=== PATIENT | male | born 1945 | race Caucasian/White ===

== ENCOUNTER 2016-12-20 08:25 | Inpatient (IN) | payer OTHER ==
[~2016-12-20] VITALS: Ht 180.3 cm; Wt 82.0 kg
[~2016-12-20 08:25] MED LIST: OMEP-110 PO
[2016-12-20] MEDS ORDERED: FENTANYL PF 100 MCG/2ML ONE ×3 (08:58→12:09)
[2016-12-20] MEDS ORDERED: MIDAZOLAM 1 MG/ML, 2ML ONE (08:58)
[2016-12-20] MEDS ORDERED: CEFAZOLIN 1,000 MG ONE (08:59)
[2016-12-20] MEDS ORDERED: ONDANSETRON 2MG/ML, 2ML ONE (08:59)
[2016-12-20] MEDS ORDERED: DEXAMETHASONE 4 MG/ML, 1ML ONE (08:59)
[2016-12-20] MEDS ORDERED: PROPOFOL 10 MG/ML, 20ML ONE (08:59)
[2016-12-20] MEDS ORDERED: SUCCINYLCHOLINE 20 MG/ML, 10ML ONE (09:00)
[2016-12-20] MEDS ORDERED: LIDOCAINE-MPF 2% ,5ML ONE (09:00)
[2016-12-20] MEDS ORDERED: PROPOFOL 50 ML ONE (09:00)
[2016-12-20] MEDS ORDERED: LACTATED RINGERS 1,000 ML IV SCH (09:06)
[2016-12-20] MEDS ORDERED: LIDOCAINE 1%, 2ML ONE (09:10)
[2016-12-20 09:12] VITALS: BP 156/76
[2016-12-20] MEDS ORDERED: NEOSPORIN OINT, 15GM ONE (10:20)
[2016-12-20] MEDS ORDERED: EPINEPHRINE TOPICAL SOLN 1 MG/ML, 30ML ONE (10:20)
[2016-12-20] MEDS ORDERED: LIDOCAINE/PF 1%, 30ML ONE (10:25)
[2016-12-20] MEDS ORDERED: EPINEPHRINE 1 MG/ML, 1ML ONE (10:26)
[2016-12-20] MEDS ORDERED: ROCURONIUM 10 MG/ML ONE ×2 (10:44→10:59)
[2016-12-20] MEDS ORDERED: GLYCOPYRROLATE 0.2MG/1ML, 5ML ONE (10:59)
[2016-12-20] MEDS ORDERED: NEOSTIGMINE 1 MG/ML, 10ML ONE (10:59)
[2016-12-20] MEDS ORDERED: OXYcodone 5 MG/5 ML ORAL.SOL UDC PO PRN (11:30)
[2016-12-20] MEDS ORDERED: MEPERIDINE/PF 25MG/0.5ML IVPush PRN (11:30)
[2016-12-20] MEDS ORDERED: HYDROmorphone 1 MG/ML, 1ML IV PRN (11:30)
[2016-12-20] MEDS ORDERED: DIAZEPAM 5 MG/ML, 2ML IVPush PRN (11:30)
[2016-12-20] MEDS ORDERED: ALBUTEROL/IPRATROPIUM 2.5MG/0.5MG, 3 ML NPPB PRN ×2 (11:30→22:30)
[2016-12-20] MEDS ORDERED: PROMETHAZINE 25 MG/ML, 1ML IV PRN (11:30)
[2016-12-20] MEDS ORDERED: ACETAMINOPHEN 325 MG TABLET PO PRN ×2 (11:30→17:30)
[2016-12-20] MEDS ORDERED: hydrALAzine 20 MG/ML, 1ML IV PRN (11:30)
[2016-12-20] MEDS ORDERED: MIDAZOLAM 1 MG/ML, 2ML IV PRN (11:30)
[2016-12-20] MEDS ORDERED: LABETALOL 5MG/ML, 20ML IV PRN (11:30)
[2016-12-20] MEDS ORDERED: ONDANSETRON 2MG/ML, 2ML IVPush PRN ×2 (11:30→17:30)
[2016-12-20] MEDS ORDERED: METOCLOPRAMIDE 5 MG/ML, 2ML IV PRN (11:30)
[2016-12-20] MEDS ORDERED: OXYcodone 5 MG/5 ML ORAL.SOL UDC ONE (12:09)
[2016-12-20] MEDS: FENTANYL PF 100 MCG/2ML IV PRN ×2 (12:10→12:19)
[2016-12-20] MEDS: NICOTINE 21 MG/24 HR PATCH.TD24 TD SCH (17:30)
[2016-12-20] MEDS ORDERED: morphine SULFATE 10 MG/ML, 1ML IVPush PRN (17:30)
[2016-12-20] MEDS ORDERED: POLYETHYLENE GLYCOL 17 GM PACKET PO PRN (17:30)
[2016-12-20] MEDS ORDERED: ONDANSETRON ODT 4 MG PO PRN (17:30)
[2016-12-20] MEDS ORDERED: DOCUSATE 100 MG CAPSULE PO PRN (17:30)
[2016-12-20] MEDS ORDERED: LABETALOL 5MG/ML, 20ML IVPush PRN (17:30)
[2016-12-20] MEDS ORDERED: BISACODYL 10 MG SUPP PR PRN (17:30)
[2016-12-20] MEDS ORDERED: ENOXAPARIN 40 MG/0.4 ML SQ SCH (17:30)
[2016-12-20] MEDS ORDERED: FUROSEMIDE 20 MG/2 ML IV ONE (18:00)
[2016-12-20 18:58] LABS: HEMATOCRIT 24.9 % (39.2-51.8); HEMOGLOBIN 8.2 g/dL (13.7-18.0); WHITE BLOOD COUNT 6.6 x10^3/uL (3.4-10)
[2016-12-20 19:13] LABS: ASPARTATE AMINO TRANSFERASE 11 U/L (15-37); BLOOD UREA NITROGEN 11 mg/dL (7-18)
[2016-12-20 19:18] VITALS: BP 166/82
[2016-12-20 19:21] LABS: IS PT STATUS REG ER OR PRE ER? NO
[2016-12-20 23:42] VITALS: BP 134/81
[2016-12-21] VITALS (8 sets, daily range): BP systolic 131–146; BP diastolic 69–84
[2016-12-21 06:00] LABS: WHITE BLOOD COUNT 9.7 x10^3/uL (3.4-10)
[2016-12-21 06:18] LABS: HEMATOCRIT 20.8 % (39.2-51.8)
[2016-12-21 06:26] LABS: BLOOD UREA NITROGEN 14 mg/dL (7-18)
[2016-12-21 07:03] LABS: ANISOCYTOSIS 1+; POIKILOCYTOSIS 1+
[2016-12-21 07:50] LABS: HEMOGLOBIN 7.1 g/dL (13.7-18.0)
[2016-12-21 07:53] LABS: HEMATOCRIT 21.1 % (39.2-51.8)
[2016-12-21] MEDS ORDERED: MAGNESIUM SULFATE PMX 2GM/50ML 50 ML IV ONE (09:30)
[2016-12-21] MEDS ORDERED: FUROSEMIDE 20 MG/2 ML IV ONE (11:30)
[2016-12-21 15:37] LABS: HEMATOCRIT 25.8 % (39.2-51.8); HEMOGLOBIN 8.7 g/dL (13.7-18.0)
[2016-12-21] MEDS: LISINOPRIL 5 MG TABLET PO SCH (17:26)
[2016-12-21] MEDS: NICOTINE 21 MG/24 HR PATCH.TD24 TD SCH (17:30)
[2016-12-21] MEDS ORDERED: ENOXAPARIN 40 MG/0.4 ML SQ SCH (17:30)
[2016-12-22 01:30] VITALS: BP 122/79
[2016-12-22 05:17] LABS: HEMATOCRIT 25.1 % (39.2-51.8); HEMOGLOBIN 8.6 g/dL (13.7-18.0); WHITE BLOOD COUNT 9.9 x10^3/uL (3.4-10)
[2016-12-22 05:28] LABS: BLOOD UREA NITROGEN 18 mg/dL (7-18)
[2016-12-22 08:38] VITALS: BP 119/70
[2016-12-22] MEDS: LISINOPRIL 5 MG TABLET PO SCH (09:14)
[2016-12-22] MEDS ORDERED: LISI5TAB7 PO (14:28)
== END 2016-12-22 14:40 | disposition home or self-care (01) | DRG 146 ==
LOC: OUT 08:25 → ORIP 17:30 → 4NOR 17:58
PROVIDERS: ADMIT Internal Medicine; ATTEND Internal Medicine
PROC: 0CBT8ZX Excision of Right Vocal Cord, Via Natural or Artificial Opening Endoscopic, Diagnostic (ICD-10-PCS; principal; 2016-12-20 10:30)
PROC: 0T9B70Z Drainage of Bladder with Drainage Device, Via Natural or Artificial Opening (ICD-10-PCS; 2016-12-21)
PROC: 30233N1 Transfusion of Nonautologous Red Blood Cells into Peripheral Vein, Percutaneous Approach (ICD-10-PCS; 2016-12-21)
DX: C32.0 Malignant neoplasm of glottis (principal); J96.01 Acute respiratory failure with hypoxia; C78.00 Secondary malignant neoplasm of unspecified lung; C79.89 Secondary malignant neoplasm of other specified sites; E87.8 Other disorders of electrolyte and fluid balance, not elsewhere classified; E87.1 Hypo-osmolality and hyponatremia; E83.42 Hypomagnesemia; C67.9 Malignant neoplasm of bladder, unspecified; D53.9 Nutritional anemia, unspecified; I10 Essential (primary) hypertension; E78.5 Hyperlipidemia, unspecified; K21.9 Gastro-esophageal reflux disease without esophagitis; F17.210 Nicotine dependence, cigarettes, uncomplicated; I73.9 Peripheral vascular disease, unspecified; J44.9 Chronic obstructive pulmonary disease, unspecified; R33.9 Retention of urine, unspecified; R00.0 Tachycardia, unspecified; R22.1 Localized swelling, mass and lump, neck; D50.0 Iron deficiency anemia secondary to blood loss (chronic)
CPT/HCPCS: 36415; 71010; 71020; 76770; 80048; 80053; 81003; 82040; 82607; 82746; 83735; 84100; 84484; 85014; 85018; 85025; 86850; 86900; 86923; 88305; 88331; 93005; 93306; J0171; J0690; J1100; J2250; J2405; J2704; J2710; J3010; J3490; J0330; J1940; J3475; J7120; P9016

== ENCOUNTER 2017-03-24 16:41 | Inpatient (IN) | payer MEDICARE, OTHER ==
[2017-03-24] VITALS (8 sets, daily range): BP systolic 122–166; BP diastolic 71–88
[~2017-03-24] VITALS: Ht 180.3 cm; Wt 84.1 kg
[~2017-03-24 16:41] MED LIST changes: +LISI5TAB7 PO
[2017-03-24 17:57] LABS: ALBUMIN 2.6 g/dL (3.4-5.0); ANION GAP 8 mmol/L (5-15); CALCIUM 8.2 mg/dL (8.5-10.1); CHLORIDE 95 mmol/L (98-107); CREATININE 0.95 mg/dL (0.7-1.3)
[2017-03-24 17:58] LABS: INTERNATIONAL NORMALIZED RATIO 1.1 (0.93-1.1); PROTHROMBIN TIME 11.4 Seconds (9.6-11.5)
[2017-03-24] MEDS ORDERED: SODIUM CHLORIDE FLUSH 10ML SYR IVF PRN (18:00)
[2017-03-24 18:02] LABS: MEAN CORPUSCULAR HEMOGLOBIN 30.9 pg (27.5-34.5); MEAN CORPUSCULAR HGB CONC 32.7 g/dL (33.2-36.2); MEAN CORPUSCULAR VOLUME 94.3 fL (81-97); MEAN PLATELET VOLUME 6.9 fL (7.4-10.4); PLATELET COUNT 517 x10^3/uL (130-400); RED CELL DISTRIBUTION WIDTH 17.5 % (9.4-14.8)
[2017-03-24 18:23] LABS: BASOPHILS # (AUTO) 0.01 x10^3/uL (0-0.1); BASOPHILS % (AUTO) 0 % (0-1); EOSINOPHILS % (AUTO) 0 % (1-7); LYMPHOCYTES # (AUTO) 0.55 x10^3/uL (1-3.4); LYMPHOCYTES % (AUTO) 6 % (22-44); MD MORPH REVIEW ONLY; MONOCYTES # (AUTO) 0.06 x10^3/uL (0.2-0.8); MONOCYTES % (AUTO) 1 % (2-9); NEUTROPHILS # (AUTO) 8.46 x10^3/uL (1.8-6.8); NEUTROPHILS % (AUTO) 93 % (42-75)
[2017-03-24 18:24] LABS: ANISOCYTOSIS 1+
[2017-03-24 18:25] LABS: <PLATELET ESTIMATE> INCREASED; OVALOCYTES 1+; POLYCHROMASIA 1+; SCHISTOCYTES 1+; TARGET CELLS 1+
[2017-03-24 18:26] LABS: <PLT MORPHOLOGY> NORMAL PLT MORPH
[2017-03-24] MEDS ORDERED: CEFTRIAXONE PMX 1GM/50ML 50 ML IV SCH (21:30)
[2017-03-24] MEDS ORDERED: ACETAMINOPHEN 325 MG TABLET PO PRN (22:00)
[2017-03-24] MEDS ORDERED: POLYETHYLENE GLYCOL 17 GM PACKET PO PRN (22:00)
[2017-03-24] MEDS ORDERED: BISACODYL 10 MG SUPP PR PRN (22:00)
[2017-03-24] MEDS: NICOTINE 14MG/24 HR PATCH.TD24 TD SCH (22:00)
[2017-03-24] MEDS ORDERED: ONDANSETRON 2MG/ML, 2ML IVPush PRN (22:00)
[2017-03-24] MEDS ORDERED: ALBUTEROL SULFATE 2.5 MG/3 ML ONE (23:17)
[2017-03-24] MEDS: NS + 20MEQ KCL 1,000 ML IV SCH (23:42)
[2017-03-24] MEDS: CEFTRIAXONE 1,000 MG in DEXTROSE 5% 50 ML IV SCH (23:43)
[2017-03-24] MEDS: SODIUM CHLORIDE FLUSH 10ML SYR IVF SCH (23:45)
[2017-03-24] MEDS: TEMAZEPAM 15 MG CAPSULE PO PRN (23:48)
[2017-03-25] VITALS (7 sets, daily range): BP systolic 134–173; BP diastolic 76–93
[2017-03-25] MEDS ORDERED: ALBUTEROL SULFATE 2.5 MG/3 ML NPPB PRN
[2017-03-25] MEDS: GUAIFENESIN/DM 200-20MG, 10ML UDC PO PRN (00:09)
[2017-03-25] MEDS: AZITHROMYCIN 500 MG in SODIUM CHLORIDE 0.9% 250 ML IV SCH (00:34)
[2017-03-25 04:29] LABS: MEAN CORPUSCULAR HEMOGLOBIN 28.7 pg (27.5-34.5); MEAN CORPUSCULAR HGB CONC 32.9 g/dL (33.2-36.2); MEAN CORPUSCULAR VOLUME 87.3 fL (81-97); MEAN PLATELET VOLUME 6.9 fL (7.4-10.4); PLATELET COUNT 386 x10^3/uL (130-400); RED BLOOD COUNT 2.42 x10^6/uL (4.38-5.82); RED CELL DISTRIBUTION WIDTH 22.5 % (9.4-14.8)
[2017-03-25 04:42] LABS: ALBUMIN 2.6 g/dL (3.4-5.0); ANION GAP 10 mmol/L (5-15); CALCIUM 7.7 mg/dL (8.5-10.1); CHLORIDE 94 mmol/L (98-107)
[2017-03-25 04:45] LABS: ALANINE AMINOTRANSFERASE 13 U/L (12-78); ALKALINE PHOSPHATASE 81 U/L (45-117); BILIRUBIN,TOTAL 0.7 mg/dL (0.2-1.0); CREATININE 0.91 mg/dL (0.7-1.3); TOTAL PROTEIN 6.9 g/dL (6.4-8.2)
[2017-03-25 04:53] LABS: BASOPHILS # (AUTO) 0.01 x10^3/uL (0-0.1); BASOPHILS % (AUTO) 0 % (0-1); EOSINOPHILS % (AUTO) 0 % (1-7); LYMPHOCYTES # (AUTO) 0.85 x10^3/uL (1-3.4); LYMPHOCYTES % (AUTO) 9 % (22-44); MD SCAN; MONOCYTES # (AUTO) 0.55 x10^3/uL (0.2-0.8); MONOCYTES % (AUTO) 6 % (2-9); NEUTROPHILS # (AUTO) 8.08 x10^3/uL (1.8-6.8); NEUTROPHILS % (AUTO) 85 % (42-75)
[2017-03-25 07:22] LABS: ABSOLUTE RETICS # 0.056 x10^6/uL (0.5-1.5); RETICULOCYTE COUNT % 2.33 % (0.5-1.5)
[2017-03-25 07:24] LABS: RED BLOOD COUNT 2.42 x10^6/uL (4.38-5.82)
[2017-03-25 07:56] LABS: FOLATE LEVEL 16.4 ng/mL (3.1-17.5); THYROID STIMULATING HORMONE 0.799 mIU/L (0.358-3.740)
[2017-03-25] MEDS: SENNA/DOCUSATE TABLET PO SCH (08:39)
[2017-03-25] MEDS: OMEPRAZOLE 20 MG CAPSULE.DR PO SCH (08:39)
[2017-03-25] MEDS: SODIUM CHLORIDE FLUSH 10ML SYR IVF SCH ×2 (08:40→19:59)
[2017-03-25] MEDS ORDERED: MAGNESIUM SULFATE PMX 4GM/100M 100 ML IV ONE (09:00)
[2017-03-25] MEDS: ALBUTEROL SULFATE 2.5 MG/3 ML NPPB SCH ×4 (10:46→19:20)
[2017-03-25] MEDS: POTASSIUM CHLORIDE 20 MEQ TAB.ER.PRT PO SCH (17:35)
[2017-03-25] MEDS: NS + 20MEQ KCL 1,000 ML IV SCH (19:59)
[2017-03-25] MEDS: NICOTINE 14MG/24 HR PATCH.TD24 TD SCH (20:01)
[2017-03-25] MEDS: CEFTRIAXONE 1,000 MG in DEXTROSE 5% 50 ML IV SCH (23:50)
[2017-03-26] MEDS: ALBUTEROL SULFATE 2.5 MG/3 ML NPPB SCH ×5 (00:01→20:00)
[2017-03-26] MEDS ORDERED: ZOLPIDEM 5MG TABLET ONE (01:08)
[2017-03-26] MEDS: AZITHROMYCIN 500 MG in SODIUM CHLORIDE 0.9% 250 ML IV SCH (01:10)
[2017-03-26 01:24] VITALS: BP 130/72
[2017-03-26 04:24] LABS: MEAN CORPUSCULAR HEMOGLOBIN 29.1 pg (27.5-34.5); MEAN CORPUSCULAR HGB CONC 32.9 g/dL (33.2-36.2); MEAN CORPUSCULAR VOLUME 88.5 fL (81-97); MEAN PLATELET VOLUME 7.1 fL (7.4-10.4); PLATELET COUNT 409 x10^3/uL (130-400); RED BLOOD COUNT 2.93 x10^6/uL (4.38-5.82)
[2017-03-26 04:34] LABS: ANION GAP 9 mmol/L (5-15); CHLORIDE 96 mmol/L (98-107); CREATININE 0.75 mg/dL (0.7-1.3)
[2017-03-26 04:51] LABS: RED CELL DISTRIBUTION WIDTH 20.6 % (9.4-14.8)
[2017-03-26 04:55] LABS: BASOPHILS # (AUTO) 0.01 x10^3/uL (0-0.1); BASOPHILS % (AUTO) 0 % (0-1); EOSINOPHILS # (AUTO) 0.09 x10^3/uL (0-0.4); EOSINOPHILS % (AUTO) 1 % (1-7); LYMPHOCYTES # (AUTO) 0.96 x10^3/uL (1-3.4); LYMPHOCYTES % (AUTO) 7 % (22-44); MD SCAN; MONOCYTES # (AUTO) 1.03 x10^3/uL (0.2-0.8); MONOCYTES % (AUTO) 7 % (2-9); NEUTROPHILS # (AUTO) 12.41 x10^3/uL (1.8-6.8); NEUTROPHILS % (AUTO) 86 % (42-75)
[2017-03-26 08:00] VITALS: BP 152/81
[2017-03-26] MEDS ORDERED: FUROSEMIDE 40 MG/4 ML IV ONE (08:30)
[2017-03-26] MEDS ORDERED: POTASSIUM CHLORIDE 20 MEQ TAB.ER.PRT PO ONE (08:30)
[2017-03-26] MEDS: SODIUM CHLORIDE FLUSH 10ML SYR IVF SCH ×2 (08:31→19:41)
[2017-03-26] MEDS: SENNA/DOCUSATE TABLET PO SCH (08:31)
[2017-03-26] MEDS: OMEPRAZOLE 20 MG CAPSULE.DR PO SCH (08:31)
[2017-03-26] MEDS: POTASSIUM CHLORIDE 20 MEQ TAB.ER.PRT PO SCH (08:32)
[2017-03-26 14:48] VITALS: BP 138/79
[2017-03-26 18:23] LABS: OCCULT BLOOD POSITIVE (NEGATIVE)
[2017-03-26] MEDS: NICOTINE 14MG/24 HR PATCH.TD24 TD SCH (19:42)
[2017-03-26] MEDS ORDERED: ZOLPIDEM 5MG TABLET PO ONE (21:00)
[2017-03-26 22:02] VITALS: BP 123/73
[2017-03-26] MEDS: CEFTRIAXONE 1,000 MG in DEXTROSE 5% 50 ML IV SCH (23:19)
[2017-03-27 00:06] VITALS: BP 115/68
[2017-03-27] MEDS: AZITHROMYCIN 500 MG in SODIUM CHLORIDE 0.9% 250 ML IV SCH (00:06)
[2017-03-27 05:08] LABS: MEAN CORPUSCULAR HEMOGLOBIN 29.5 pg (27.5-34.5); MEAN CORPUSCULAR HGB CONC 33.3 g/dL (33.2-36.2); MEAN CORPUSCULAR VOLUME 88.6 fL (81-97); MEAN PLATELET VOLUME 7.2 fL (7.4-10.4); PLATELET COUNT 394 x10^3/uL (130-400); RED BLOOD COUNT 2.87 x10^6/uL (4.38-5.82); RED CELL DISTRIBUTION WIDTH 20.5 % (9.4-14.8)
[2017-03-27 05:21] LABS: CHLORIDE 95 mmol/L (98-107)
[2017-03-27 05:28] LABS: ALANINE AMINOTRANSFERASE 17 U/L (12-78); ALBUMIN 2.7 g/dL (3.4-5.0); ALKALINE PHOSPHATASE 85 U/L (45-117); ANION GAP 8 mmol/L (5-15); BILIRUBIN,TOTAL 0.3 mg/dL (0.2-1.0); CALCIUM 8.2 mg/dL (8.5-10.1); TOTAL PROTEIN 6.9 g/dL (6.4-8.2)
[2017-03-27 05:37] LABS: BASOPHILS # (AUTO) 0.01 x10^3/uL (0-0.1); BASOPHILS % (AUTO) 0 % (0-1); EOSINOPHILS # (AUTO) 0.01 x10^3/uL (0-0.4); EOSINOPHILS % (AUTO) 0 % (1-7); LYMPHOCYTES # (AUTO) 1.16 x10^3/uL (1-3.4); LYMPHOCYTES % (AUTO) 10 % (22-44); MD SCAN; MONOCYTES # (AUTO) 1.21 x10^3/uL (0.2-0.8); MONOCYTES % (AUTO) 10 % (2-9); NEUTROPHILS % (AUTO) 80 % (42-75)
[2017-03-27 07:18] VITALS: BP 139/78
[2017-03-27] MEDS: ALBUTEROL SULFATE 2.5 MG/3 ML NPPB SCH ×4 (07:30→20:25)
[2017-03-27] MEDS: SODIUM CHLORIDE FLUSH 10ML SYR IVF SCH ×2 (08:04→19:33)
[2017-03-27] MEDS: SENNA/DOCUSATE TABLET PO SCH (08:05)
[2017-03-27] MEDS: OMEPRAZOLE 20 MG CAPSULE.DR PO SCH (08:05)
[2017-03-27] MEDS ORDERED: FUROSEMIDE 40 MG/4 ML IV ONE (12:00)
[2017-03-27] MEDS: POTASSIUM CHLORIDE 20 MEQ TAB.ER.PRT PO SCH ×2 (12:58→18:59)
[2017-03-27 14:21] VITALS: BP 119/65
[2017-03-27 18:21] VITALS: BP 116/62
[2017-03-27] MEDS: NICOTINE 14MG/24 HR PATCH.TD24 TD SCH (19:33)
[2017-03-27] MEDS: CEFTRIAXONE 1,000 MG in DEXTROSE 5% 50 ML IV SCH (23:46)
[2017-03-27] MEDS: GUAIFENESIN/DM 200-20MG, 10ML UDC PO PRN (23:50)
[2017-03-28 00:09] VITALS: BP 146/77
[2017-03-28] MEDS: TEMAZEPAM 15 MG CAPSULE PO PRN (00:36)
[2017-03-28] MEDS: AZITHROMYCIN 500 MG in SODIUM CHLORIDE 0.9% 250 ML IV SCH (00:37)
[2017-03-28 05:31] LABS: BASOPHILS # (AUTO) 0.04 x10^3/uL (0-0.1); BASOPHILS % (AUTO) 0 % (0-1); EOSINOPHILS % (AUTO) 0 % (1-7); LYMPHOCYTES # (AUTO) 1.73 x10^3/uL (1-3.4); LYMPHOCYTES % (AUTO) 13 % (22-44); MD NO; MEAN CORPUSCULAR HEMOGLOBIN 29.4 pg (27.5-34.5); MEAN CORPUSCULAR HGB CONC 33.6 g/dL (33.2-36.2); MEAN CORPUSCULAR VOLUME 87.7 fL (81-97); MEAN PLATELET VOLUME 7.3 fL (7.4-10.4); MONOCYTES # (AUTO) 1.23 x10^3/uL (0.2-0.8); MONOCYTES % (AUTO) 9 % (2-9); NEUTROPHILS # (AUTO) 10.16 x10^3/uL (1.8-6.8); NEUTROPHILS % (AUTO) 77 % (42-75); PLATELET COUNT 346 x10^3/uL (130-400); RED BLOOD COUNT 2.88 x10^6/uL (4.38-5.82); RED CELL DISTRIBUTION WIDTH 20.4 % (9.4-14.8)
[2017-03-28 05:34] LABS: ANION GAP 10 mmol/L (5-15); CALCIUM 8.1 mg/dL (8.5-10.1); CHLORIDE 94 mmol/L (98-107); CREATININE 0.83 mg/dL (0.7-1.3)
[2017-03-28 06:50] VITALS: BP 144/82
[2017-03-28] MEDS: ALBUTEROL SULFATE 2.5 MG/3 ML NPPB SCH ×2 (07:15→10:35)
[2017-03-28] MEDS ORDERED: ALBU2.5V NPPB (07:58)
[2017-03-28] MEDS ORDERED: AZIT250T PO (07:58)
[2017-03-28] MEDS ORDERED: ALBU18HF INH (07:58)
[2017-03-28] MEDS ORDERED: CEFD300C37 PO (07:58)
[2017-03-28] MEDS: SODIUM CHLORIDE FLUSH 10ML SYR IVF SCH (09:14)
[2017-03-28] MEDS: SENNA/DOCUSATE TABLET PO SCH (09:14)
[2017-03-28] MEDS: OMEPRAZOLE 20 MG CAPSULE.DR PO SCH (11:24)
== END 2017-03-28 14:21 | disposition home or self-care (01) | DRG 291 ==
LOC: ED 17:53 → EDIP 18:00 → 3NW 21:02
PROVIDERS: ADMIT Hospitalist; ATTEND Hospitalist
PROC: 30233N1 Transfusion of Nonautologous Red Blood Cells into Peripheral Vein, Percutaneous Approach (ICD-10-PCS; principal; 2017-03-24)
DX: I11.0 Hypertensive heart disease with heart failure (principal); J96.21 Acute and chronic respiratory failure with hypoxia; E44.0 Moderate protein-calorie malnutrition; J18.1 Lobar pneumonia, unspecified organism; I48.91 Unspecified atrial fibrillation; D64.9 Anemia, unspecified; E87.1 Hypo-osmolality and hyponatremia; J44.0 Chronic obstructive pulmonary disease with (acute) lower respiratory infection; I50.31 Acute diastolic (congestive) heart failure; R73.9 Hyperglycemia, unspecified; E87.6 Hypokalemia; F17.210 Nicotine dependence, cigarettes, uncomplicated; I73.9 Peripheral vascular disease, unspecified; K21.9 Gastro-esophageal reflux disease without esophagitis; Z82.0 Family history of epilepsy and other diseases of the nervous system; Z68.25 Body mass index [BMI] 25.0-25.9, adult; Z88.5 Allergy status to narcotic agent; Z85.118 Personal history of other malignant neoplasm of bronchus and lung; Z85.21 Personal history of malignant neoplasm of larynx
CPT/HCPCS: 36415; 36430; 71045; 80048; 80053; 82040; 82272; 82607; 82728; 82746; 83540; 83550; 83735; 83880; 84443; 85014; 85018; 85025; 85045; 85610; 85730; 86850; 86900; 86923; 87040; 87205; 93005; 93970; 94640; J0456; J1940; J3480; J7613; J3475; J7050; P9016